=== PATIENT | female | born 1950 | race Caucasian/White ===

== ENCOUNTER → 2017-06-17 | Outpatient (CLI) | payer MEDICARE, MEDICAID ==
[~2017-06-17] MED LIST: (DPS FOR ANTIVE25 MG PO; ASPIRIN (CHILDR81 MG PO; COUMADIN **IA2.5 MG PO; FLEXERIL10 MG PO; K-TAB 10MEQ10 MEQ PO; MYCOLOG CREAM 330 GM TOP; NORCO 5-325 TA1 EACH PO; NORVASC10 MG PO; PRINIVIL (ZESTR20 MG PO; PROTONIX40 MG PO; TYLENOL325 MG PO
== END | disposition disaster alternative care site (69) ==
LOC: GRAD 15:14
DX: R22.31 Localized swelling, mass and lump, right upper limb (principal); R20.0 Anesthesia of skin; M25.431 Effusion, right wrist; M65.9 Synovitis and tenosynovitis, unspecified

== ENCOUNTER 2017-07-07 01:44 | Observation (INO) | payer MEDICARE, MEDICAID ==
[~2017-07-07] VITALS: Ht 162.6 cm; Wt 132.2 kg
--- NOTE | ~2017-07-07 | OR ---
PATIENT'S NAME: ZAIRA CRUZ [facility] AGE: 67 Y [address] ROOM: [address] [address] LOCATION: GPCU ADMIT DATE: 07/07/2017 OR/Procedure Report DISCHARGE DATE: 07/09/2017 FAMILY PHYSICIAN: Henry Castellanos MD ATTENDING PHYSICIAN: Jarrett Vazquez SURGEON: Michael Jordan MD RELIGIOUS EDUCATION TEACHER: Shahram Craven PA-C DATE OF PROCEDURE: 07/08/2017 PREOPERATIVE DIAGNOSES: 1. Cholecystitis, cholelithiasis. 2. Possible choledocholithiasis. POSTOPERATIVE DIAGNOSES: 1. Acute cholecystitis, cholelithiasis. 2. Normal intraoperative cholangiogram. ANESTHESIA: General with 25 mL of 0.5% Marcaine. SPECIMEN: Gallbladder with stones. CHOLANGIOGRAM FINDINGS: Corrected anatomy identified. Initial view thought there was possibly a small distal common bile duct stone, but there was free flow of contrast into duodenum and radiologist felt it was normal. INDICATION: The patient is a pleasant 67-year-old young lady who was admitted to the hospital with abdominal pain. She was found to have cholelithiasis, cholecystitis, possibly choledocholithiasis. Her bilirubin was going down. We elected to go ahead and remove the gallbladder, perform a cholangiogram assessment to see if ERCP is necessary. DESCRIPTION OF PROCEDURE: After informed consent, the patient was taken to the operating room. After general endotracheal anesthesia, the patient's abdomen was prepped and draped into a sterile field. Local anesthetic infiltrated prior to each incision. The first one made below the umbilicus and carried down to identify the anterior fascia through which a Veress needle inserted. Pneumoperitoneum created. Trocar and laparoscope inserted under direct vision. The remaining trocars were placed. The gallbladder was grabbed at the fundus, retracted cephalad and laterally. We stripped down the edematous adhesions of the hepatoduodenal ligament and retracted it laterally. We stripped down the edematous fatty tissue, exposed a mildly enlarged cystic duct. It was isolated and clipped on the gallbladder side. We placed a cholangiogram and used Isovue-30 contrast and performed our above-mentioned cholangiogram. We then removed it, clipped the cystic duct x3 distally and divided. The cystic artery isolated, clipped and divided. The gallbladder PATIENT'S NAME: ZAIRA CRUZ [facility] AGE: 67 Y [address] ROOM: [place] [address] LOCATION: GPCU ADMIT DATE: 07/07/2017 OR/Procedure Report DISCHARGE DATE: 07/09/2017 FAMILY PHYSICIAN: Henry Castellanos MD ATTENDING PHYSICIAN: Jarrett Vazquez removed from the liver bed and placed into an EndoCatch bag, brought out through the umbilical fascial defect. We irrigated the right upper quadrant until clear. We used Endo Stitch of 0 Vicryl to close the subxiphoid fascial defect under direct vision. We then removed all trocars, released pneumoperitoneum, closed the umbilical fascial defect with 0 Vicryl. The skin closed with subcuticular 4-0 Vicryl, Steri-Strips. Sterile dressings applied. The patient tolerated the procedure well and transferred to the recovery room in a stable condition. MICHAEL JORDAN MD WTMargret/modl /[id number] d: t: 07/14/17 1759, OPERATIVE SUMMARY
--- NOTE | ~2017-07-07 | ER ---
PATIENT'S NAME: ZAIRA CRUZ [facility] AGE: 67 Y [address] ROOM: [place] [address] LOCATION: ED ADMIT DATE: 07/07/2017 ER/Outpatient Report DISCHARGE DATE: FAMILY PHYSICIAN: Physician, Unknown ATTENDING PHYSICIAN: Shashank Obrien Time of Arrival: 0144 hours. Time of Evaluation: 0145 hours. CHIEF COMPLAINT: Chest pain. HISTORY OF PRESENT ILLNESS: The patient is a 67-year-old female, who presents to the emergency department today with chief complaint of chest pain. She reports it has been off and on for the past 2 days. She has not had similar episodes in the past like this. She reports that it got much worse this evening after supper. She was up visiting her daughter, who is admitted to the hospital. She was an assistance alert and brought down into the emergency department for further evaluation, treatment, and management. She denies any nausea. Did have some mild diaphoresis reported by staff, who witnessed the patient's initial assessment on the assistance alert; however, she denies any diaphoresis. She reports it is a sharp stabbing-type pain in the center of her chest. No radiation. Denies any ripping or tearing sensation. No radiation to her back. Pain is currently moderate in severity. PAST MEDICAL HISTORY: Hypertension, dyslipidemia, and DVT. PAST SURGICAL HISTORY: Left knee and hysterectomy. SOCIAL HISTORY: The patient denies any tobacco, alcohol, or illicit drug use. ALLERGIES: NO KNOWN DRUG ALLERGIES. MEDICATIONS: Please see list. PRIMARY CARE DOCTOR: Dr. Castellanos in [place]. REVIEW OF SYSTEMS: PATIENT'S NAME: ZAIRA CRUZ [facility] AGE: 67 Y [address] ROOM: [place], [place] [address] LOCATION: ED ADMIT DATE: 07/07/2017 ER/Outpatient Report DISCHARGE DATE: FAMILY PHYSICIAN: Physician, Unknown ATTENDING PHYSICIAN: Shashank Obrien All systems are reviewed by myself and negative with the exception of those discussed in HPI and past medical history. PHYSICAL EXAMINATION: VITAL SIGNS: Weight 133.9 kg. Blood pressure 197/91, pulse 77, respiratory rate 22, temperature 97.3, and oxygen saturation 100% on 2 L nasal cannula. GENERAL: The patient is a 67-year-old female, who appears her stated age. She appears in mild acute distress secondary to pain. She is obese. HEENT: Head, normocephalic, atraumatic. Pupils are equal, round, and reactive to light. Oropharynx is clear. NECK: Supple. There is no nuchal rigidity. CARDIOVASCULAR: Regular rate and rhythm. No murmurs, rubs, or gallops. LUNGS: Clear to auscultation bilaterally. No wheezes, rales, or rhonchi. ABDOMEN: Soft, nontender, and nondistended. No rebound, rigidity, or guarding. MUSCULOSKELETAL: The patient does have some tenderness to palpation in anterior chest wall. SKIN: Warm and dry. No rashes or lesions noted. LABORATORY DATA AND X-RAYS: Labs and x-rays are obtained. EKG is obtained, is interpreted by myself at 01:57 shows sinus rhythm with a rate of 75, normal axis, normal interval. No ST elevation or ST depression. T-wave inversions. CMP is unremarkable except for chloride 112, CO2 of 20. LFTs normal. Magnesium is normal. Cardiac enzymes are normal. ProBNP is 382. CBC: White blood cell count 12.4, otherwise normal. PTT is 39 and INR is 2.04. Chest x-ray shows no acute process. CT scan of the chest is obtained and is interpreted by Radiology shows no evidence of PE. There is a right pulmonary nodule 4 mm. There are edematous changes to the adrenal gland, gallstones. EKG and enzymes are pending at time of dictation. IMPRESSION: 1. Chest pain, rule out acute coronary syndrome. 2. Right pulmonary nodules. 3. Edematous changes to the adrenal gland. 4. Initial visit. EMERGENCY DEPARTMENT COURSE: The patient brought back to the examination room. Seen and evaluated by myself. IV is established. Laboratory analysis and imaging are obtained as described above. The patient did take aspirin prior. The patient was given some nitroglycerin and it does result in improvement in the patient's symptoms. However, it does return. She is given another nitroglycerin and it did improve. The patient was also given morphine 4 mg IV. I have discussed results with the patient. I have recommended admission to hospital for PATIENT'S NAME: ZAIRA CRUZ [facility] AGE: 67 Y [address] ROOM: [place], [place] [address] LOCATION: [facility] ADMIT DATE: 07/07/2017 ER/Outpatient Report DISCHARGE DATE: FAMILY PHYSICIAN: Physician, Min ATTENDING PHYSICIAN: Shashank Obrien further evaluation, treatment, and management. The patient is agreeable. I have contacted Dr. Vazquez and discussed the case with him. He does agree to accept the patient for further evaluation, treatment, and management. DISPOSITION: The patient is admitted under the care of Dr. Vazquez in the Hospitalist Service in stable condition. DO CALIN YEUNG/modl /[id number] d: 07/07/17 0457 t: 07/08/17 1938, OUTPATIENT REPORT
--- NOTE | ~2017-07-07 | HP ---
PATIENT'S NAME: ZAIRA CRUZ [facility] AGE: 67 Y [address] ROOM: [place] [address] LOCATION: GPCU ADMIT DATE: 07/07/2017 History & Physical DISCHARGE DATE: FAMILY PHYSICIAN: PHYSICIAN, UNKNOWN ATTENDING PHYSICIAN: ELFEGO KENNY DATE OF SERVICE: CHIEF COMPLAINT: Epigastric pain and also substernal chest pain on palpation. HISTORY OF PRESENT ILLNESS: This is a 67-year-old female who says that for the last few days especially since Wednesday about 3 days ago after dinner and after each meal, the patient will get this pain in the epigastric area with radiation to her back. She states that when she eats, the pain worsens. She denies ever having history of upper or lower GI bleeding and she has never had upper or lower endoscopy either. The pain is on palpation of the epigastric and also on the substernal chest area. She denies any trauma or any heavy lifting. She denies any shortness of breath or cough or fever or chills or any other symptoms. Due to the persistent and recurrent pain after eating in the epigastric and also in the substernal chest area, the patient was evaluated in the emergency room. The patient does not have any known history of cardiac problems and never had a history of myocardial infarction or heart failure. She denies using any [id number]-kna-ufnqike Aleve or ibuprofen recently. She does have a history of acid reflux for several years. REVIEW OF SYSTEMS: As mentioned in the history of present illness. All other systems were reviewed and were negative except those mentioned in the history of present illness. PAST MEDICAL HISTORY: 1. Hypertension. 2. Hyperlipidemia. 3. Chronic left lower extremity DVT, diagnosed back in the year 1999. ALLERGIES: NONE. HOME MEDICATIONS: Currently is being reconciled. SOCIAL HISTORY: The patient denies any cigarette or alcohol or any illegal drug use. PATIENT'S NAME: ZAIRA CRUZ [facility] AGE: 67 Y [address] ROOM: [place] [address] LOCATION: GPCU ADMIT DATE: 07/07/2017 History & Physical DISCHARGE DATE: FAMILY PHYSICIAN: PHYSICIAN, UNKNOWN ATTENDING PHYSICIAN: ELFEGO KENNY PAST SURGICAL HISTORY: 1. Left knee surgery. 2. Hysterectomy. 3. Right ankle surgery. FAMILY HISTORY: Hypertension and kidney cancer in father and in mother, she does not remember. PHYSICAL EXAMINATION: VITAL SIGNS: At the time of evaluation; temperature 98, blood pressure 156/65, heart rate 73, respiration 14, saturation 96% on room air. GENERAL APPEARANCE: Alert and oriented x3. Currently, in no acute distress. HEENT: Pupils are equally round and reactive to light. Extraocular muscles intact. Anicteric sclerae. Nasal turbinates are normal bilaterally. Moist oral mucosa. NECK: No JVD. CARDIOVASCULAR: Tenderness to palpation in the substernal chest wall and also in the epigastric area. Normal S1, S2. No murmur. No rubs. No gallops. Regular rate and rhythm. RESPIRATORY: Clear to auscultation. No rales. No rhonchi. No wheezing. No crackles. ABDOMEN: Obese, mildly tender to palpation in the right upper quadrant and also in the epigastric area and also in the left upper quadrant area. No rebound or tenderness. No mass. No abdominal rigidity. EXTREMITIES: No edema in upper or lower extremities. NEUROLOGICAL: Grossly nonfocal. LABORATORY DATA: CPK 52. Troponin less than 0.04. ProBNP 382. White blood cell 12.4, hemoglobin 13.5, hematocrit 41.1, platelet 200. Glucose 103, BUN 18 and creatinine 0.7. Sodium 140, potassium 4.5, chloride 112, CO2 20, calcium 8.2. Total protein 7.3, albumin 2.9, AST 13, ALT 19, alkaline phosphatase 90, total bilirubin 0.2, magnesium 1.9, anion gap 12.5. INR 2.04, PTT 39, GFR 90, CK- MB 0.5. IMAGING STUDIES: EKG on admission, the first one performed on 07/07/2017 at 1:51 a.m. shows sinus rhythm, heart rate 75. Has T-wave inversion in lead 3, otherwise unremarkable. No prior EKG for comparison. Second EKG on the same date at 4:23 a.m. showed the same finding, heart rate of 78. Repeat EKG at 5:42 a.m. showed the same finding with the heart rate of 73. PATIENT'S NAME: ZAIRA CRUZ [facility] AGE: 67 Y [address] [address] [facility]: [facility] ADMIT DATE: 07/07/2017 History & Physical DISCHARGE DATE: FAMILY PHYSICIAN: PHYSICIAN, UNKNOWN ATTENDING PHYSICIAN: ELFEGO KENNY CT angiogram of the chest on admission based on the preliminary review. It was read as no pulmonary embolism. Right-sided pulmonary nodule with largest measuring 4 mm. Possible adenomatous change to the adrenal glands which are nodular, gallstone. Chest x-ray currently has been ordered. ASSESSMENT AND PLAN: 1. Regarding her epigastric and substernal chest pain, reproducible on palpation and after meals. From the story likely this could be from the gastroesophageal reflux disease, gastritis, Grier esophagus. Given that her pain is reproducible on palpation less likely is from the cardiac origin. Could also be costochondritis given that it is reproducible on palpation in the substernal chest wall area. The palpable pain on the epigastric area is likely from the pancreas or from the stomach. I will check the amylase and lipase right now. For gastroesophageal reflux disease, I will be covering her with IV Protonix 40 mg 1 dose right now and then daily and then daily see how she responds to IV Protonix. The patient says that IV nitroglycerin does not help her with pain on palpation therefore, I am going to stop the IV nitroglycerin drip. EKG 3 of them were done and no acute ST depression or elevation seen. Cardiac enzyme 2 sets currently are negative. I will check 1 more set right now. I will get a GI consult to see what GI thinks about her epigastric pain. Given that there was a gallstone seen on the CT angiogram of the chest and also she has pain on palpation in the right upper quadrant, I will be getting a complete abdominal ultrasound looking for cholecystitis or cholelithiasis. Further plan will depend on clinical course. 2. Regarding her history of chronic right lower extremity deep venous thrombosis on Coumadin. INR 2.0. She is not anemic. I will hold off on the Coumadin for now. Waiting for GI consult to see if they would like to perform upper endoscopy. In that case, we may have to reverse the INR to below 1.5. I will defer to GI for evaluation first to see what they think. 3. Regarding her history of hypertension. Continue home medication with lisinopril, but with holding parameter. Hold if systolic less than 120. 4. Regarding her deep venous thrombosis prophylaxis. She is already on Coumadin and INR 2.0. 5. She is a full code. Time spent in care on the day of admission 50 minutes where 20 minutes was spent on chart review and the remainder of the time was spent on interview and physical examination, on counseling. The counseling includes going over plan of care with the patient and addressing all her questions and concerns to her PATIENT'S NAME: ZAIRA CRUZ [facility] AGE: 67 Y [address] ROOM: [place] [address] [facility]: [facility] ADMIT DATE: 07/07/2017 History & Physical DISCHARGE DATE: FAMILY PHYSICIAN: PHYSICIAN, UNKNOWN ATTENDING PHYSICIAN: ELFEGO KENNY satisfaction. Further plan will depend on clinical course. ELFEGO KENNY MD CC/angel /[id number] D: T: [id number] HISTORY & PHYSICAL
--- NOTE | ~2017-07-07 | CON ---
PATIENT'S NAME: ZAIRA MATSON [facility] AGE: 67 Y [address] ROOM: [address] [address] LOCATION: GPCU ADMIT DATE: 07/07/2017 Consultation DISCHARGE DATE: FAMILY PHYSICIAN: Henry Castellanos MD ATTENDING PHYSICIAN: ELFEGO KENNY DATE OF CONSULTATION: 07/07/2017 REFERRING PHYSICIAN: MADIE AMADO MD CARDIOLOGY CONSULTATION REQUESTING PROVIDER: Brandy Camargo MD REASON FOR CONSULTATION: Chest pain and preop cardiac evaluation. CHIEF COMPLAINT: Chest pain. HISTORY OF PRESENTING ILLNESS: The patient is a very pleasant 67-year-old female who is morbidly obese. She has a history of hypertension, hyperlipidemia, and chronic lower extremity edema as well as morbid obesity. She does not have any cardiac history. No history of stents. She has not had any valve surgery or CABG. 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 She basically reports that on Wednesday, she had dinner and no issues. However, an hour later, she started having severe epigastric pain and that radiate to her back. She reports she gets this off and on, but never this severe. She took some Tylenol that did not help her. This started getting progressively worse and has started occurring even in the upper part of her chest as well as associated with nausea. It was quite severe and this happened when she was visiting her daughter here in the hospital, and the nurse noticed this and took her to the emergency room. In the ER, she got an EKG and cardiac enzymes and they were negative. She has ruled out AL with serial EKGs without any ST depression. No evidence of ischemia or injury pattern. She also had an episode of severe nausea during which on telemetry, she had four episodes of nonconducted sinus beats. She does have a narrow complex rhythm. There was no evidence of bundle branch blocks, and after the four beats, she returned back to a normal sinus rhythm without any high-grade AV block after the nausea resolved. She did get a pain medication not sure exactly which one. It was given IV and that has improved her symptoms quite significantly. She did have an episode of vomiting. She has not had any PATIENT'S NAME: ZAIRA MATSON [facility] AGE: 67 Y [address] ROOM: [address] [place] [id number] LOCATION: GPCU ADMIT DATE: 07/07/2017 Consultation DISCHARGE DATE: FAMILY PHYSICIAN: Henry Castellanos MD ATTENDING PHYSICIAN: ELFEGO KENNY stroke-like symptoms. No changes in her speech, sensation, or swallowing. No weakness in her legs. She also does not have any headaches, fever, or chills. No skin rashes. No recent travel. She does report chest pressure off and on, especially when she walks. She also has dyspnea on exertion. However, she reports this is chronic and not new. She has had these symptoms for several years. She did have a hysterectomy in January with similar episodes of symptoms and did not have any complications during anesthesia. She does report that her chest discomfort at times is worse after eating. PAST MEDICAL HISTORY: 1. Hypertension. 2. Hyperlipidemia. 3. Chronic lower extremity edema. 4. Morbid obesity. 5. She also had history of DVT in the past that was unprovoked. This occurred in 2001 per patient and has been on Coumadin for that. PAST SURGICAL HISTORY: 1. Hysterectomy. 2. Tonsillectomy. 3. Right ankle pinning. 4. Right knee ligament surgery. 5. Left total knee. SOCIAL HISTORY: The patient denies alcohol or illicit drug abuse. Never smoked. FAMILY HISTORY: She has no premature coronary artery disease or sudden cardiac . REVIEW OF SYSTEMS: All review of systems were discussed with the patient and pertinent positives and negatives mentioned in the HPI. ALLERGIES: NO KNOWN DRUG ALLERGIES. MEDICATIONS: 1. She is on Protonix IV 40 daily. 2. Antivert 25 mg q.i.d. 3. Aspirin 81 daily. 4. Lipitor 40 daily. PATIENT'S NAME: ZAIRA MATSON [facility] AGE: 67 Y [address] ROOM: [id number] [place] [id number] LOCATION: GPCU ADMIT DATE: 07/07/2017 Consultation DISCHARGE DATE: FAMILY PHYSICIAN: Henry Castellanos MD ATTENDING PHYSICIAN: ELFEGO KENNY 5. Zestril 20 b.i.d. 6. Mycostatin ointment p.r.n. PHYSICAL EXAMINATION: VITAL SIGNS: Her blood pressure is 167/71, O2 saturations 98% on room air, and respirations 20. She is afebrile at 97.8. Her weight is 134 kg. GENERAL APPEARANCE: The patient is morbidly obese. She is not in any apparent distress. SKIN: Warm and dry. HEENT: Head; normocephalic and atraumatic. Mucous membranes are moist and sclerae white, and no xanthelasmas. NECK: No JVD. CHEST: Her chest pain is reproducible and with palpation, she has severe chest pain as well as abdominal pain. No rebound or guarding. HEART: S1 and S2. Regular rate and rhythm. No murmurs, gallops, or rubs. RESPIRATIONS: Clear to auscultation bilaterally. ABDOMEN: Soft. Bowel sounds positive. MUSCULOSKELETAL: She has no muscle weakness. EXTREMITIES: Mild lower extremity edema. NEUROLOGIC: Grossly nonfocal. LABORATORY DATA AND IMAGING STUDIES: Sodium 140, potassium 4.5, CO2 of 20, chloride 112, BUN 18, creatinine 0.7, albumin 2.9, globulin 4.4, total protein of 7.3, EGFR 90, alkaline phosphatase 90, AST 13, and ALT 19. CPK x3 negative; 57, 52, and 46; CK-MB x3 is less than 0.5; and troponin x3 is less than 0.04. ProBNP is 382. WBC 12.4, H and H 41.1 and 86.2, and platelets are 200,000. INR is 2. She had a CT scan of her chest for PE protocol, and she had a 4 mm nodule in the right middle lobe and other sub 4 mm nodules noted on the right side. A followup CT in 6 months was recommended. There was no evidence of PE or pneumonia. Chest x-ray shows mild bibasilar atelectasis. IMPRESSION: 1. Atypical chest pain. 2. Hypertension. 3. History of hyperlipidemia. 4. Morbid obesity. 5. Abdominal pain associated with nausea, radiating to her chest with positive ultrasound, official report pending and Surgery planning for cholecystectomy on an urgent basis given her severe chest pain associated with nausea and vomiting, and positive ultrasound. 6. Four nonconducted sinus beats in the setting of severe nausea. Once her nausea resolved, there is no recurrence or dropped beats noted. She is in normal sinus rhythm. PATIENT'S NAME: ZAIRA MATSON [facility] AGE: 67 Y [address] [address] [facility] AD[facility] DATE: 07/07/2017 Consultation DISCHARGE DATE: FAMILY PHYSICIAN: Henry Castellanos MD ATTENDING PHYSICIAN: ELFEGO KENNY 7. In terms of cardiovascular risk stratification, given her other comorbidities, she is at moderate risk for preoperative cardiac events given her poor functional capacity as well as chronic chest heaviness as well as dyspnea on exertion. However, she has not had any workup. She has had these symptoms for a long time. She did undergo hysterectomy in January of 2017 and reports she had similar exertional symptoms and tolerated the procedure well. 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 At this time, there is no indication to do a stress test prior to urgent surgery. She is not in any decompensated heart failure. She does not have any evidence of acute coronary syndrome. Her chest pain is quite atypical and reproducible. There is no evidence of any malignant arrhythmias or high grade atrioventricular blocks. She merely had four nonconducted sinus beats that were noted in the setting of nausea. 8. She did have history of deep venous thrombosis about 15 years ago or so, not sure if she still needs to be on Coumadin for that. We will defer to primary care physician. 9. Given her symptoms of chronic exertional symptoms as well as risk factors, I think she will benefit from an ischemic workup and stress test, once all of these acute issues have been resolved, I would be happy to see her in my office as a followup in 6 weeks and then we can discuss further about cardiovascular testing at that time. Thank you very much, Dr. Camargo, for allowing us to participate in the care of Ms. Matson. MIKE MCCANN MD AT/modl /[id number] d: 07/07/172034 t: 07/08/17 0836, CONSULTATION REPORT
--- NOTE | ~2017-07-07 | HP ---
PATIENT'S NAME: ZAIRA MATSON [facility] AGE: 67 Y [address] ROOM: [address] [place] [id number] LOCATION: GPCU ADMIT DATE: 07/07/2017 History & Physical DISCHARGE DATE: FAMILY PHYSICIAN: Henry Castellanos MD ATTENDING PHYSICIAN: JARRETT KENNY DATE OF SERVICE: 07/07/2017 REFERRING PHYSICIAN: Jarrett Kenny M.D. CHIEF COMPLAINT: Abdominal pain. REVIEW OF RECORD: Ms. 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 Associated with nausea and vomiting. No fevers, chills, or jaundice. She said this started Wednesday evening about 2 hours after she ate. She has been down in [place] because her daughter is in the hospital for what sounds like a diabetic toe amputation. She states that the pain is unremitting except for now after pain medication she feels better. The patient does have morbid obesity. She has chronic shortness of breath and has a history of DVT. The workup included ultrasound, which showed a 13 mm calcified stone in the gallbladder as well as gallbladder wall thickening, common bile duct was mildly dilated at 9 mm. She had normal liver function test and white count was slightly elevated at 12,000. She had a positive Dodd sign with ultrasound transducer palpation. Cardiology, Dr. Comfort rIby, has seen the patient for clearance. She felt like she has moderate risk due to preexisting conditions of obesity, etc, but did not feel that her symptoms were cardiac related. A CT scan showed no evidence of pulmonary embolism. Incidentally, did show bilateral tiny nonspecified nodules in both lung khoury, which recommended to have followup CT scan in 6 months. I did relate this to the patient and asked her to discuss it further with her primary care physician and Hospitalist Service. The patient denies any previous abdominal operations. PAST MEDICAL HISTORY: Illnesses: 1. Morbid obesity. 2. Hypertension. 3. Chronic shortness of breath. 4. Hyperlipidemia. 5. History of left lower extremity DVT. PATIENT'S NAME: ZAIRA MATSON [facility] AGE: 67 Y [address] ROOM: [facility] [address] [place] [address] LOCATION: GPCU ADMIT DATE: 07/07/2017 History & Physical DISCHARGE DATE: FAMILY PHYSICIAN: Henry Castellanos MD ATTENDING PHYSICIAN: JARRETT KENNY 6. Degenerative joint disease. Operations: 1. Left total knee replacement. 2. Hysterectomy. 3. Right ankle surgery. 4. Ligamentous repair, right knee. ALLERGIES: NONE. MEDICATIONS: Include Coumadin and the rest is being reconciled. She did take 2 aspirins today. SOCIAL HISTORY: She denies alcohol or tobacco abuse. FAMILY HISTORY: Kidney cancer in her father and hypertension in her mother. REVIEW OF SYSTEMS: She denies any fevers, chills, or jaundice. Denies any change in her vision or hearing, but she says she gets vertigo. Denies any problems with swallowing. Said she threw up on attempt at eating lunch this afternoon. She says she is passing gas and having flatus. She does not recall her colonoscopy date. Denies any abnormal vaginal bleeding. No swollen joints. PHYSICAL EXAMINATION: GENERAL: She is a pleasant 67-year-old young lady, who appears to be in minimal distress at this time. She says she feels better after pain medication. HEENT: Her head is normocephalic. Her sclerae are nonicteric. Mucous membranes are dry. NECK: Supple. There is no adenopathy. LUNGS: Clear to auscultation bilaterally. No audible wheezing. HEART: Appears regular rhythm and rate. I do not auscultate a murmur. ABDOMEN: Her abdomen is morbidly obese. She is tender across the epigastrium and right upper quadrant with positive Dodd sign. No palpable hepatosplenomegaly, but difficult due to abdominal wall obesity. Her lower abdomen is nontender to palpation. There is no evidence of active panniculitis. EXTREMITIES: She has no peripheral edema at the ankle. IMPRESSION: PATIENT'S NAME: ZAIRA MATSON [facility] AGE: 67 Y [address] ROOM: [id number] [place] [id number] LOCATION: GPCU ADMIT DATE: 07/07/2017 History & Physical DISCHARGE DATE: FAMILY PHYSICIAN: Henry Castellanos MD ATTENDING PHYSICIAN: JARRETT KENNY This is a 67-year-old young lady with a 40-hour history of what sounds like biliary colic, cholecystitis, and cholelithiasis. She has gallstones. She also has a dilated common bile duct, though her liver function tests are normal. PLAN: Recommend laparoscopic cholecystectomy and performance of an intraoperative cholangiogram for common bile duct assessment. I explained the procedure, benefits, and risks including; but not limited to; abdominal wall hernias; abdominal wall infections; intestinal injury; common bile duct injury, requiring reoperation or referral to a tertiary center; bleeding, requiring transfusion or reoperation to stop bile leak; pulmonary embolism; pneumonia; myocardial infarction; and . The patient's INR is currently 2 and we will hold the Coumadin today. We will recheck in the morning and if stable, we will proceed with planned procedure. The patient is in agreement with the procedure. Thank you very much for allowing me to participate in her care. MD OJSE ABARCA/modl /[id number] D: T: 210 HISTORY & PHYSICAL
--- NOTE | ~2017-07-07 | CON ---
PATIENT'S NAME: ZAIRA CRUZ [facility] AGE: 67 Y [address] ROOM: [place] [address] LOCATION: GPCU ADMIT DATE: 07/07/2017 Consultation DISCHARGE DATE: FAMILY PHYSICIAN: Henry Castellanos MD ATTENDING PHYSICIAN: ELFEGO KENNY DATE OF CONSULTATION: 07/07/2017 REFERRING PHYSICIAN: MADIE AMADO MD REASON FOR CONSULTATION: Epigastric pain, substernal chest pain with palpation. HISTORY OF PRESENT ILLNESS: This is a very pleasant 67-year-old female who was recently admitted with epigastric pain. She states that on Wednesday, she had dinner, and approximately an hour later, began experiencing epigastric pain with radiation to the back. She states that it was severe, though she had "experienced it before." She did take some Tylenol, though it provided no relief. The pain continued on Wednesday that progressively worsened with more severe radiation to the back. She denied any associated nausea or vomiting. No change in bowel habits with it. She was seen in the emergency room. Cardiac enzymes have been negative, as well as EKG was normal. She denies any NSAID use or gscw-jaf-jadufey reflux medication, though she does endorse reflux for "a number of years." Denies any history of upper endoscopy or colonoscopy. Amylase and lipase were also evaluated and within normal limits. The patient denied any acute chest pain, chest pressure, or shortness of breath. The substernal chest pain is reproducible with palpation, and she does state it worsens with food. PAST MEDICAL HISTORY: Hypertension, hyperlipidemia, and chronic left lower extremity edema diagnosed back in year 1999. PAST SURGICAL HISTORY: Denies any history of upper endoscopy or colonoscopy. Right knee ligament surgery, right ankle pinning, tonsillectomy, hysterectomy, and left total knee. SOCIAL HISTORY: The patient denies any cigarette, alcohol, or illicit drug use. FAMILY HISTORY: She does endorse a sister having colon cancer, though is unaware of the details. The patient's brother has diabetes. The patient's father and mother had kidney cancer, though cannot give any more details. PATIENT'S NAME: ZAIRA CRUZ [facility] AGE: 67 Y [address] ROOM: [place] [id number] [facility] AD[facility]: 07/07/2017 Consultation DISCHARGE DATE: FAMILY PHYSICIAN: Henry Castellanos MD ATTENDING PHYSICIAN: ELFEGO KENNY ALLERGIES: NO KNOWN MEDICATION ALLERGIES. CURRENT MEDICATIONS: Please refer to the medication administration record. REVIEW OF SYSTEMS: An all-point review of systems was completed, all were negative except for those identified in the History of Present Illness. PHYSICAL EXAMINATION: GENERAL: A pleasant 67-year-old female who appears to be in no acute distress. VITAL SIGNS: Temperature 98.3, pulse of 72, respirations of 20, blood pressure 156/65, and oxygen saturation is 97% on room air. SKIN: [place], warm, and dry. No jaundice. HEENT: Head is normocephalic and atraumatic. Pupils are equal, round, and reactive to light. Sclerae are clear, nonicteric. Oral mucosa is pink and moist. NECK: No thyromegaly. Neck is soft and supple. CARDIOVASCULAR: Regular. Normal S1 and S2. RESPIRATORY: Respirations even and unlabored. Lungs are clear to auscultation. ABDOMEN: Soft and round. Tender in the epigastric area as well as the substernal area with palpation. Bowel sounds are positive. MUSCULOSKELETAL: No muscle weakness or atrophy. EXTREMITIES: No edema. NEUROLOGICAL: Grossly nonfocal. LABORATORY AND DIAGNOSTIC DATA: Current abdominal ultrasound and KUB are pending at this time. Per review of initial records, it appears that CT angiogram of the chest was also completed, though official report is pending. Per the preliminary report, it appears that there is no pulmonary embolism; right-sided pulmonary nodules, largest measuring 4 mm; possible adenomatous change in the adrenal glands which are nodular; and gallstones. Cardiac enzymes have been negative. White blood cell count elevated at 12.4, hemoglobin of 13.5, hematocrit of 41.1, and platelets of 200. Chemistry panel includes a glucose of 103, BUN of 18, creatinine 0.7, sodium 140, potassium of 4.5, chloride of 112, and CO2 of 20. Albumin of 2.9. AST of 13, ALT of 19, and alkaline phosphatase of 90. Total bilirubin 0.2. Magnesium of 1.9. Prothrombin time 21.6, INR is 2.04, and PTT of 39. ASSESSMENT AND PLAN: PATIENT'S NAME: ZAIRA CRUZ [facility] AGE: 67 Y [address] [place] [facility] [address] [place] [address] [facility] AD[facility] DATE: 07/07/2017 Consultation DISCHARGE DATE: FAMILY PHYSICIAN: Henry Castellanos MD ATTENDING PHYSICIAN: ELFEGO KENNY Again, this is a very pleasant 67-year-old female who was admitted with epigastric pain and substernal chest pain with palpation. Workup has been completed to rule out cardiac, and cardiac enzymes and EKGs have been normal. At this time, there is a pending abdominal ultrasound. Differentials do include gastroesophageal reflux disease versus gastritis versus Grier esophagus vs gallbladder. The patient may need an upper endoscopy, though INR is elevated at 2.0. The patient is on Coumadin. We will await for abdominal ultrasound to be completed to rule out gallbladder issues, though again liver function tests are within normal limits as well. Further recommendations to be given after reports of the abdominal ultrasound is received as well as correction of an INR for possible upper endoscopy. Thank you for this consult. ANGELA SAMANIEGO APRN FOR MD BEKAH GONZALEZ/angel /[id number] d: 07/07/17 1154 t: 07/13/17 0751, CONSULTATION REPORT
--- NOTE | ~2017-07-07 | DS ---
PATIENT'S NAME: ZAIRA CRUZ [facility] AGE: 67 Y [address] ROOM: [place] [id number] LOCATION: GPCU ADMIT DATE: 07/07/2017 Discharge Summary DISCHARGE DATE: 07/09/2017 FAMILY PHYSICIAN: Henry Castellanos MD ATTENDING PHYSICIAN: Jarrett Vazquez PRINCIPAL DIAGNOSES: 1. Cholecystitis and cholelithiasis. 2. Atypical chest pain, resolved. 3. Abdominal pain, secondary to cholecystitis and cholelithiasis. 4. Uncontrolled hypertension. 5. Morbid obesity. 6. History of deep vein thrombosis. 7. Subtherapeutic INR. 8. Right lung nodules x3. 9. Abdominal and groin Cristiane. CONSULTING PROVIDERS: 1. Gastroenterology, Makenna Juarez, YAMINI. 2. Cardiology, Dr Cassidy. 3. Surgeon, Dr. Gonzalez. PROCEDURES: Laparoscopic cholecystectomy with intraoperative cholangiogram by Dr. Gonzalez on 07/08/2017. HOSPITAL COURSE: Please reference any of the admitting data to the history and physical as dictated by Dr. Jarrett Vazquez. This 67-year-old female presented with abdominal pain as well as atypical chest pain that was reproducible on palpation. Her initial set of cardiac enzymes were negative. A CT scan of her chest did not show any evidence of pulmonary embolism or pneumonia. She was admitted into the hospital for further evaluation and management. She was placed on telemetry with routine vital signs. Her cardiac enzymes were trended, which were negative. She did get a Cardiology consultation. She was started on aspirin and statin. She did have 4 nonconducted sinus beats in the setting of her severe nausea, but otherwise was grossly normal. Cardiac enzymes were negative. Hypertension was uncontrolled and so a second agent was added, which further optimized her blood pressure. As for further investigation of her abdominal pain, an x-ray of her abdomen was nonspecific; however, abdominal ultrasound showed a large gallbladder stone with sludge in the gallbladder and some concern for common bile duct PATIENT'S NAME: ZAIRA CRUZ [facility] AGE: 67 Y [address] ROOM: [place] [id number] LOCATION: GPCU ADMIT DATE: 07/07/2017 Discharge Summary DISCHARGE DATE: 07/09/2017 FAMILY PHYSICIAN: Henry Castellanos MD ATTENDING PHYSICIAN: Jarrett Vazquez. Liver enzymes were negative. It was GI's impression that the patient would require removal of the gallbladder; so, Surgical consultation was obtained. Her Coumadin was held and risks and benefits and informed consent was given for gallbladder removal. Cardiology provided cardiac clearance for the procedure. She was given preoperative cefoxitin and underwent a lap elvira without complications. Pain control postoperatively was utilized with oral [place]. The patient tolerated diet. Her epigastric pain had nearly ceased. Her atypical chest pain had gone. The patient was also found to have Cristiane dermatitis of her pannus so a [facility] consult was obtained and the patient was started on appropriate wound care as well as Nystatin cream. On the day of discharge, we resumed her Coumadin with goals of normal trend to INR of 2.0 to 3.0. The remaining of her chronic conditions were maintained by her home medicines. She was given diet and lifestyle modification education given her morbid obesity and the necessity of followup care with her primary care provider. CONDITION UPON DISCHARGE: Good. LABORATORY DATA: Pertinent labs findings and radiologic imaging as described above and further reviewed here. Abdominal x-ray negative. Chest x-ray showed mild bibasilar atelectasis. CT/PE protocol was negative for any PE. There is noted a 3 tiny noncalcified nodules in the right lung. Follow up in the 6 months with a repeat CT scan recommended and cholelithiasis. There was also mention of tapering the pulmonary arteries after prominence centrally, raising the possibility of pulmonary hypertension. Abdominal ultrasound showed cholelithiasis with sludge filling the remainder of the gallbladder with gallbladder tenderness and the common bile duct dilatation of 9-mm. Intraoperative cholangiogram was normal. Pertinent lab findings: Cardiac enzymes were negative x3 sets. Initial presentation showed a mild elevation in her white blood count of 12.4 and 11.3 respectively, hemoglobin was normal at 13.6, hematocrit of 42.3, and platelet count of 222. Liver functions were normal. Chemistry panel did show a fasting sugar of 103, 120, and 126 respectively over 3 periods; otherwise, without any problems. INR upon presentation was 2.04 and was 1.08 at discharge. PATIENT'S NAME: ZAIRA CRUZ [facility] AGE: 67 Y [address] ROOM: [id number] [place] [id number] LOCATION: GPCU ADMIT DATE: 07/07/2017 Discharge Summary DISCHARGE DATE: 07/09/2017 FAMILY PHYSICIAN: Henry Castellanos MD ATTENDING PHYSICIAN: Jarrett Vazquez Amylase and lipase were within normal limits. Liver functions were within normal limits. DISCHARGE MEDICATIONS: 1. Potassium chloride 20 mEq p.o. every morning. 2. Amlodipine 10 mg p.o. everyday. 3. Aspirin enteric-coated 81 mg p.o. everyday. 4. Lisinopril 20 mg p.o. every 12 hours. 5. Meclizine 25 mg p.o. 4 times daily. 6. Nystatin triamcinolone ointment to abdominal folds topically 4 times daily until 07/18/2017 at 2200 hours. 7. Protonix 40 mg p.o. daily. 8. Coumadin 2.5 mg p.o. daily, starting on 07/10/2017. 9. Acetaminophen 650 mg p.o. every 4 hours as needed. 10. [place] 5/325 mg 1 to 2 tablets p.o. every 6 hours as needed, prescription written. 11. Flexeril 10 mg p.o. 3 times daily. DISCHARGE INSTRUCTIONS: The patient will return to home. Her diet is to remain a cardiac low-fat, low-salt, and low-cholesterol diet. Activity as per postop laparoscopic cholecystectomy routine orders. No heavy lifting of greater than 10 pounds for 10 to 14 days or as directed by the surgeon Dr. Gonzalez. FOLLOW UP: She should have followup with the following providers: 1. Dr. Gonzalez, in [address] Cassidy in 2 weeks for further evaluation of cardiac as she does have significant risk factors. She will go on new antihypertensives, I did ask her that she check her blood pressure and heart rate every morning upon rising at the same time and record those results and take to her followup with both her primary care provider as well as Dr. Cassidy. 3. She also need to follow up with Dr. Castellanos, her primary care provider. He will be prescribing and titrating her Coumadin to INR at therapeutic level 2.0 to 3.0. I did request a PT/INR to be drawn on Wednesday and faxed to his office. I also requested a CMS to be drawn at followup with her primary care provider and she should also comply with a followup of CT of her chest in 6 months given the incidental findings of the 3 right lung nodules found on CT scan. The above line of information was discussed with the patient who stated complete understanding of the plan. All questions were answered with statements of satisfaction. PATIENT'S NAME: ZAIRA CRUZ [facility] AGE: 67 Y [address] ROOM: [place] [id number] LOCATION: [facility] ADMIT DATE: 07/07/2017 Discharge Summary DISCHARGE DATE: 07/09/2017 FAMILY PHYSICIAN: Henry Castellanos MD ATTENDING PHYSICIAN: Jarrett Vazquez Thank you for allowing us to participate in the care of this patient while at [facility]. GREG ONEAL APRN, APRN FOR MD TERESA MUSA/angel /[id number] CC: MD Henry Thurman MD Anuradha Tunuguntla, MD d: t: 07/10/17 0240, DISCHARGE SUMMARY
[2017-07-07 02:11] LABS: BASOPHIL % 0.3 %; EOSINOPHIL # 0.2 K/uL (0.0-0.5); EOSINOPHIL % 1.8 %; HEMATOCRIT 41.1 % (33.0-46.0); HEMOGLOBIN 13.5 g/dL (10.0-15.0); IMMATURE GRANULOCYTE % 0.3 %; LYMPHOCYTE # 2.1 K/uL (0.8-4.0); LYMPHOCYTE % 17.2 %; MCH 28.3 pg (27.0-34.0); MCHC 32.8 gm/dL (32.0-36.5); MCV 86.2 fl (83.0-98.0); MONOCYTE # 0.8 K/uL (0.0-1.0); MPV 10.8 fl (9.4-12.4); NEUTROPHIL # (ANC) 9.3 K/uL (1.8-7.8); NEUTROPHIL % 74.4 %; NRBC % 0 /100WBC (0-0.00); PLATELET COUNT 200 K/uL (150-450); RBC 4.77 M/uL (3.50-5.50); RDW-CV 14.2 % (11.9-14.6); WBC 12.4 K/uL (4.0-11.0)
[2017-07-07 02:14] LABS: ALBUMIN 2.9 gm/dL (3.5-5.0); ALK PHOS 90 IU/L (33-138); ALT 19 IU/L (12-78); BLOOD UREA NITROGEN 18 mg/dL (6-24); CALCIUM 8.2 mg/dL (8.5-10.5); CHLORIDE 112 mMol/L (96-110); CO2 20 mMol/L (22-32); CPK 57 IU/L (21-215); CREATININE 0.7 mg/dL (0.5-1.1); TOTAL BILIRUBIN 0.2 mg/dL (0.0-1.5); TOTAL PROTEIN 7.3 g/dL (6.0-8.4)
[2017-07-07 02:16] LABS: ANION GAP 12.5 (10.0-19.0); AST 13 IU/L (10-40); MAGNESIUM 1.9 mg/dL (1.8-2.6); POTASSIUM 4.5 mMol/L (3.7-5.1); SODIUM 140 mMol/L (135-145)
[2017-07-07 02:24] LABS: INR - (THERAPEUTIC) 2.04 (0.92-1.07); PROTIME 21.6 SECONDS (9.8-11.4); PTT 39 SECONDS (25-32)
[2017-07-07 04:40] LABS: CPK 52 IU/L (21-215)
[2017-07-07] MEDS ORDERED: COUMADIN **IA2.5 MG PO (05:26)
[2017-07-07] MEDS ORDERED: PRINIVIL (ZESTR20 MG PO (05:26)
[2017-07-07] MEDS ORDERED: (DPS FOR ANTIVE25 MG PO (05:27)
[2017-07-07] MEDS ORDERED: FLEXERIL10 MG PO (05:27)
[2017-07-07] MEDS ORDERED: K-TAB 10MEQ10 MEQ PO (05:29)
[2017-07-07] MEDS ORDERED: TYLENOL325 MG PO (05:29)
[2017-07-07] MEDS ORDERED: ASPIRIN (CHILDR81 MG PO (05:30)
--- NOTE | 2017-07-07 06:26 | NUR ---
THE PATIENT HAD BEEN HAVING CHEST PAIN SINCE WEDNESDAY. SHE WAS VISITING HER DAUGHTER ON MSU WHEN HER CHEST PAIN INCREASED DESCRIBING IT A MID STERNAL PRESSURE. AN ASSISTANCE ALERT WAS CALLED AND THE PATIENT WAS TAKEN TO THE ER. SHE WAS GIVEN 2 SUBLINGUAL NITRO AND 4 MG MORPHINE WHICH TOOK HER PAIN DOWN TO A ZERO. SHE ARRIVED ON PCU VIA CART AT 0515. IV SL. SHE AMBULATED WITH 2 ASSIST TO BEDSIDE COMMODE AND BED. SHE DESCRIBED HER PAIN AT A [address] KENNY WAS CALLED AND A NITRO GTT WAS STARTED. CT WAS NEGATIVE FOR PE. HX: HTN, INCREASED CHOLESTEROL, DVT. NKA. ALL CARDIAC ENZYMES NEGATIVE X 2.
[2017-07-07 09:06] LABS: CPK 46 IU/L (21-215)
--- NOTE | 2017-07-07 14:51 | NUR ---
Introduced self and role of care management to pt. She lives in [place] and has been her with her daughter Pennie who is in the hospital here. She lives with her daughter and cares for her. Pt is up on her own without any dme and sets up her own meds and does the cooking and cleaning. She is hoping to get dismissed tomorrow. I did tell her she is under observation status. Will continue to follow.
--- NOTE | 2017-07-07 16:47 | NUR ---
Significant Information: Pt has had stable vital signs throughout shift, and has had pain levels fluctuate in chest area. Pt was rating between 6-8 on pain scale, and expressed it as aching/shooting. Tylenol was given at 1230. Pt now rates pain at a 4. At 1200 Pt vomited from upset stomach. Zofran was given, pt states feeling much better at 1400. Pt is now tolerating fluids and food well. Abdominal ultrasound indicates gall bladder removal is scheduled for 1000 on 07/08/17. Follow up information: Continue to monitor pain levels and provide comfort measures.
[2017-07-07 17:23] LABS: BASOPHIL % 0.2 %; EOSINOPHIL % 0.3 %; HEMATOCRIT 42.3 % (33.0-46.0); HEMOGLOBIN 13.6 g/dL (10.0-15.0); IMMATURE GRANULOCYTE % 0.4 %; LYMPHOCYTE # 1.1 K/uL (0.8-4.0); LYMPHOCYTE % 9.7 %; MCH 27.9 pg (27.0-34.0); MCHC 32.2 gm/dL (32.0-36.5); MCV 86.9 fl (83.0-98.0); MONOCYTE # 0.7 K/uL (0.0-1.0); MPV 11.2 fl (9.4-12.4); NEUTROPHIL # (ANC) 9.4 K/uL (1.8-7.8); NEUTROPHIL % 83.4 %; NRBC % 0 /100WBC (0-0.00); PLATELET COUNT 222 K/uL (150-450); RBC 4.87 M/uL (3.50-5.50); RDW-CV 14.4 % (11.9-14.6); WBC 11.3 K/uL (4.0-11.0)
[2017-07-07 17:35] LABS: INR - (THERAPEUTIC) 1.99 (0.92-1.07); PTT 40 SECONDS (25-32)
[2017-07-07 17:40] LABS: ALBUMIN 2.9 gm/dL (3.5-5.0); ANION GAP 10.2 (10.0-19.0); CALCIUM 8.5 mg/dL (8.5-10.5); CREATININE 0.7 mg/dL (0.5-1.1); POTASSIUM 4.2 mMol/L (3.7-5.1); TOTAL PROTEIN 7.5 g/dL (6.0-8.4)
[2017-07-07 17:43] LABS: TOTAL BILIRUBIN 0.4 mg/dL (0.0-1.5)
[2017-07-08 05:39] LABS: INR - (THERAPEUTIC) 1.2 (0.92-1.07); PROTIME 12.6 SECONDS (9.8-11.4)
--- NOTE | 2017-07-08 05:42 | NUR ---
Significant Event: A/O X 3, AMBULATES 1 ASSIST. HYPERTENSIVE AT TIMES GOT PRN LABETOLOL AND HYDRALZAINE ORDERS. GAVE HYDRALAZINE 10 MG X1 FOR SBP >160. ALL OTHER VSS ON RA. ZOFRAN GIVEN AT 2030 FOR NAUSEA NO EMESIS. HAS BEEN NPO SINCE MIDNIGHT FOR GALLBLADDER REMOVAL TODAY Follow up:
--- NOTE | 2017-07-08 17:44 | NUR ---
Significant Event: A/OX3, VSS ON ROOM AIR. NO PAIN. NORCO GIVEN IN PACU BEFORE PT. CAME BACK UP TO FLOOR. GALLBLADDER REMOVED TODAY IN OR, SURGICAL INCISION SITES X4, GAUZE/TEGADERM FOR DRESSINGS, CALL C/D/I EXCEPT FOR UPPER ABDOMEN HAS SCANT AMOUNT OF BLOODY DRAINAGE NOTED TO SITE. PT. GETS UP SBA-1A TO BATHROOM. NO BM TODAY. SLIV TO R)HAND. NORVASC GIVEN TODAY D/T SBP OF 150'S. MYCOLOG OINTMENT TO ABD FOLDS AND L)ELBOW CREASE TID. RESUMING COUMADIN TOMORROW. POSSIBLE D/C TO HOME IN AM. Follow up: CONTINUE WITH POC.
[2017-07-09 03:55] LABS: INR - (THERAPEUTIC) 1.08 (0.92-1.07); PROTIME 11.4 SECONDS (9.8-11.4)
[2017-07-09 04:02] LABS: ALBUMIN 2.4 gm/dL (3.5-5.0); ANION GAP 12.4 (10.0-19.0); CALCIUM 8.4 mg/dL (8.5-10.5); CREATININE 0.7 mg/dL (0.5-1.1); POTASSIUM 4.4 mMol/L (3.7-5.1); TOTAL BILIRUBIN 0.4 mg/dL (0.0-1.5); TOTAL PROTEIN 6.4 g/dL (6.0-8.4)
--- NOTE | 2017-07-09 04:09 | NUR ---
Significant events: Pt A/Ox3. VSS. [place] x2 for abdominal soreness. On RA. Up SBA. Abdominal sites CDI, scant drainage noted. Pt tolerated oral intake well. Up in [place] x1. Slept well this shift.
[2017-07-09] MEDS ORDERED: NORVASC10 MG PO (13:35)
[2017-07-09] MEDS ORDERED: PROTONIX40 MG PO (13:36)
[2017-07-09] MEDS ORDERED: MYCOLOG CREAM 330 GM TOP (13:36)
[2017-07-09] MEDS ORDERED: NORCO 5-325 TA1 EACH PO (13:37)
--- NOTE | 2017-07-09 15:19 | NUR ---
PATIENT IS A/OX3, VSS ON ROOM AIR. UP AD APPLE IN ROOM, WALKED IN HALLS LAST EVENING WITH MANUFACTURING ENGINEERING MANAGER. SURGICAL INCISION SITES X4 ARE COVERED WITH GAUZE/TEGADERM ALL C/D/I, EXCEPT FOR UPPER ABDOMEN SITE HAS SCANT AMOUNT OF OLD BLOODY DRAINAGE THAT WAS MARKED YESTERDAY. NEW MEDICATIONS, POST GALLBLADDER SUGERY INSTRUCTIONS AND DISMISSAL INSTRUCTIONS GONE OVER WITH PATIENT AND DAUGHTER, NO FURTHER QUESTIONS AT THIS TIME. PT. WAS GIVEN 2 TABS OF NORCO @ 1215 FOR PAIN AND 5mg OF COUMADIN BEFORE DISMISSAL. IV REMOVED FROM RIGHT HAND WITHOUT DIFFICULTLY.
== END 2017-07-09 14:45 | disposition disaster alternative care site (69) ==
LOC: GMED 01:44 → GPCU 04:49
PROVIDERS: Emergency Medicine; Internal Medicine; Physician Assistant; Surgery; ADMIT Internal Medicine
PROC: 0FT44ZZ Resection of Gallbladder, Percutaneous Endoscopic Approach (ICD-10-PCS; principal; 2017-07-08)
PROC: BF12YZZ Fluoroscopy of Gallbladder using Other Contrast (ICD-10-PCS; 2017-07-08)
DX: K80.12 Calculus of gallbladder with acute and chronic cholecystitis without obstruction (principal); I10 Essential (primary) hypertension; E66.01 Morbid (severe) obesity due to excess calories; R91.8 Other nonspecific abnormal finding of lung field; E78.5 Hyperlipidemia, unspecified; I82.502 Chronic embolism and thrombosis of unspecified deep veins of left lower extremity; M19.90 Unspecified osteoarthritis, unspecified site; Z90.710 Acquired absence of both cervix and uterus; Z98.890 Other specified postprocedural states; Z79.82 Long term (current) use of aspirin; Z90.89 Acquired absence of other organs; Z96.652 Presence of left artificial knee joint
CPT/HCPCS: C9113; G0378; J0360; J0694; J2270; J2405; J7050; J7060; J7120; J7121; Q9967